=== PATIENT | male | born 1980 | race Caucasian/White ===

== ENCOUNTER → 2023-04-04 11:58 | Outpatient (CLI) | payer BC, OTHER, SELFPAY ==
[2023-04-04 12:45] LABS: Add Manual Diff / Slide Review NO; Basophils Absolute Auto 0 /uL (0-100); Basophils Percent Auto 1.1 % (0-2); Eosinophils Absolute Auto 200 /uL (0-450); Eosinophils Percent Auto 3.7 % (2-4); Hematocrit 41.9 % (41-53); Hemoglobin 14.3 g/dL (13.5-17.5); Lymphocytes Absolute Auto 1800 /uL (1100-4500); Lymphocytes Percent Auto 38.4 % (25-40); Mean Corpuscular Hemoglobin 29.3 PG (26-34); Monocytes Absolute Auto 400 /uL (0-900); Monocytes Percent Auto 8.1 % (3-14); Neutrophils Absolute Auto 2300 /uL (1500-7000); Neutrophils Percent Auto 48.7 % (50-75); Platelet Count 242 X10^3/uL (150-400); Red Blood Cell Count 4.87 X10^6/uL (4.5-5.9); Red Cell Distribution Width 12.5 % (11.6-14.8); White Blood Cell Count 4.6 X10^3/uL (4.5-11.0)
[2023-04-04 14:49] LABS: Alanine Aminotransferase 28 IU/L (<50); Albumin 4.2 g/dL (3.5-5.0); Albumin Globulin Ratio 1.4 (1.0-2.8); Alkaline Phosphatase 56 U/L (38-126); Aspartate Aminotransferase 40 IU/L (17-59); BUN Creatinine Ratio 14.9 (6-22); Bilirubin Total 0.5 mg/dL (0.2-1.3); Blood Urea Nitrogen 18 mg/dL (9-20); Calcium 9.5 mg/dL (8.4-10.2); Carbon Dioxide 30 mmol/L (22-32); Chloride 100 mmol/L (98-107); Cholesterol 219 mg/dL (140-199); Estimated Glomerular Filt Rate > 60 mL/min (>60); Glucose 89 mg/dL (70-100); HDL Cholesterol 63 mg/dL (40-60); HEMOLYSIS < 15 (0-50); LDL Cholesterol Calculated 139 mg/dL (<100); Potassium 4.2 mmol/L (3.4-5.1); Sodium 137 mmol/L (137-145); Total Protein 7.2 g/dL (6.3-8.2); Triglycerides 85 mg/dL (35-150)
== END ==
PROVIDERS: PCP Family Medicine; Referring Provider Family Medicine; Visit Provider Family Medicine
DX: Z00.00 Encounter for general adult medical examination without abnormal findings (principal)
CPT/HCPCS: 36415; 80053; 80061; 85025; 93005; 93010

== ENCOUNTER 2023-06-18 14:37 | Emergency (ER) | payer BC, OTHER, SELFPAY ==
[2023-06-18 14:40] VITALS: BP 126/72; PULSE 86; RESP 18; TEMP 36.6; O2SAT 99
[2023-06-18 14:58] VITALS: PULSE 68
--- NOTE | 2023-06-18 15:11 | DI.RAD.S_ITS ---
PROCEDURE: XR SHOULDER RT MIN 2V INDICATIONS: Fall TECHNIQUE: 3 views of the shoulder were acquired. COMPARISON: None. FINDINGS: Bones: There is a small bone fragment projecting superiorly from the tip of the acromion. Glenohumeral alignment is maintained. No displaced fracture otherwise. Mild degenerative changes. Soft tissues: No suspicious calcifications elsewhere. IMPRESSION: Slight superior positioning of the clavicle in relation to the acromion could represent AC joint injury. Mild degenerative changes. Age-indeterminate bone fragments also seen adjacent to the AC joint. If there is high concern for further derangement, consider MRI evaluation. Dictated by: Humberto Bey M.D. on 06/18/2023 at 15:36 Approved by: Humberto Bey M.D. on 06/18/2023 at 15:37
--- NOTE | 2023-06-18 15:13 | ED.UPPEXIN ---
HPI - Extremity Injury (Upper) <Donna Clark PA-C - Last Filed: 06/18/23 15:55> General Chief Complaint: Extremity Injury, Upper Stated Complaint: fell skiing Time Seen by Provider: 06/18/23 14:47 Source: patient Mode of arrival: Ambulatory History of Present Illness HPI narrative: 43-year-old male presents to the ED status post a mechanical fall sustained during snowboarding earlier today. Patient complains of pain in the right shoulder with limited range of motion of the right arm due to pain. Patient denies numbness, tingling, weakness. Endorses mild nausea, denies vomiting. No loss of consciousness. Possible head strike. Patient took 2 Advil prior to presenting to the ED. Related Data Previous Rx's Medication Instructions Recorded tamsulosin 0.4 mg capsule 0.4 mg PO BEDTIME #90 caps 04/04/23 zolpidem 5 mg tablet (Ambien) 5 mg PO BEDTIME PRN sleep #20 tabs 04/04/23 Allergies Allergy/AdvReac Type Severity Reaction Status Date / Time No Known Drug Allergies Allergy Verified 06/27/23 08:27 Review of Systems <Donna Clark PA-C - Last Filed: 06/18/23 15:55> Constitutional Constitutional: Denies chills, Denies fatigue, Denies fever(s), Denies frequent falls, Denies lethargy and Denies weakness Eyes Eyes: Denies change in vision, Denies eye discharge, Denies irritation and Denies loss of vision ENT Ears, Nose, Mouth, and Throat: Denies change in voice, Denies dizziness, Denies neck pain, Denies sore throat and Denies throat swelling Cardiovascular Cardiovascular: Denies chest pain, Denies irregular heart rhythm, Denies lightheadedness, Denies palpitations, Denies dyspnea, Denies dyspnea on exertion and Denies orthopnea Respiratory Respiratory: Denies cough, Denies dyspnea, Denies dyspnea on exertion and Denies wheezing Gastrointestinal Gastrointestinal: Denies abdominal pain, Denies change in bowel habits, Denies diarrhea, Denies nausea and Denies vomiting Musculoskeletal Musculoskeletal: Denies neck pain and Denies numbness Comments: Right shoulder pain Integumentary/Breasts Skin/Breast: Denies pruritus, Denies erythema, Denies rash and Denies wounds Neurologic Neurologic: Denies behavioral changes, Denies confusion, Denies dizziness, Denies frequent falls, Denies loss of vision, Denies numbness and Denies weakness Psychiatric Psychiatric: Denies anxiety, Denies behavioral changes, Denies confusion, Denies depression, Denies homicidal ideation and Denies suicidal ideation Endocrine Endocrine: Denies fatigue, Denies flushing and Denies palpitations Hematologic/Lymphatic Hematologic/Lymphatic: Denies easy bruising Allergic/Immunologic Allergic/Immunologic: Denies urticaria, Denies throat swelling and Denies wheezing Patient History <Donna Clark PA-C - Last Filed: 06/18/23 15:55> Medical History Ingrown toenail of both feet Eczema BPH (benign prostatic hyperplasia) Family history of colon cancer 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 Encounter for wellness examination in adult Social History Smoking Status: Never smoker Smoking Status: Never smoker Substance Use Type: does not use Exam <Donna Clark PA-C - Last Filed: 06/18/23 15:55> Narrative Exam Narrative: Const General:?cooperative, healthy appearing and comfortable [facility] Head:?normal to inspection Ears:?hearing grossly normal bilaterally Nose:?external nose normal Face and sinus:?normal facial exam and sinuses nontender Mouth:?oral mucosae normal Throat:?posterior oropharynx normal Eyes General:?appearance normal, both eyes and all related structures Neck Neck:?normal visual inspection and no lymphadenopathy noted Resp Effort & Inspection:?normal respiratory effort Auscultation:?clear to auscultation bilaterally Cardio Rate:?regular rate Rhythm:?regular rhythm Musculoskeletal No midline tenderness to palpation. No paraspinal tenderness to palpation. There is some tenderness to palpation of the right shoulder anteriorly. Range of motion of right arm is limited due to pain in the shoulder. Strength and sensation is intact. Patient is neurovascularly intact. Neuro General:?patient alert, patient awake and patient oriented x3 Initial Vital Signs Initial Vital Signs: Vital Signs Temperature 97.9 F 06/18/23 14:40 Pulse Rate 86 06/18/23 14:40 Respiratory Rate 18 06/18/23 14:40 Blood Pressure 126/72 06/18/23 14:40 Pulse Oximetry 99 06/18/23 14:40 Oxygen Delivery Method Room Air 06/18/23 14:40 <Umair Spangler MD - Last Filed: 06/28/23 10:12> Initial Vital Signs Initial Vital Signs: Vital Signs Temperature 97.9 F 06/18/23 14:40 Pulse Rate 86 06/18/23 14:40 Respiratory Rate 18 06/18/23 14:40 Blood Pressure 126/72 06/18/23 14:40 Pulse Oximetry 99 06/18/23 14:40 Oxygen Delivery Method Room Air 06/18/23 14:40 Course <Donna Clark PA-C - Last Filed: 06/18/23 15:55> Orders Ordered: Discontinued Medications Oxycodone/Acetaminophen (Oxycodone/Acetaminophen 5/325 Tablet) 1 tab PO NOW ONE Stop: 06/18/23 15:11 Last Admin: 06/18/23 15:15 Dose: 1 tab Documented By: ES Vital Signs Vital signs: Vital Signs - 8 hr 06/18/23 14:40 06/18/23 14:58 06/18/23 15:52 Temperature 97.9 F Pulse Rate 86 65 Pulse Rate [Right Radial] 68 Respiratory Rate 18 16 Blood Pressure 126/72 128/78 Pulse Oximetry 99 97 Oxygen Delivery Method Room Air Room Air <Umair Spangler MD - Last Filed: 06/28/23 10:12> Orders Ordered: Discontinued Medications Oxycodone/Acetaminophen (Oxycodone/Acetaminophen 5/325 Tablet) 1 tab PO NOW ONE Stop: 06/18/23 15:11 Last Admin: 06/18/23 15:15 Dose: 1 tab Documented By: ES Vital Signs Vital signs: Vital Signs - 8 hr 06/18/23 14:40 06/18/23 14:58 06/18/23 15:52 Temperature 97.9 F Pulse Rate 86 65 Pulse Rate [Right Radial] 68 Respiratory Rate 18 16 Blood Pressure 126/72 128/78 Pulse Oximetry 99 97 Oxygen Delivery Method Room Air Room Air MDM - Extremity Injury (Upper) <Donna Clark PA-C - Last Filed: 06/18/23 15:55> MDM Narrative Medical decision making narrative: 43-year-old male presents to the ED status post a mechanical fall sustained during snowboarding earlier today. Concern for fracture/dislocation versus musculoskeletal sprain/strain versus other. Will obtain shoulder x-ray, give Percocet for pain, reassess. X-ray shows slight superior positioning of the clavicle in relation to the acromion, could represent AC joint injury. Age indeterminate bone fragments also seen adjacent to the AC joint. No dislocation. Patient was fitted in a sling. Discussed findings with patient. Recommend follow-up with ortho as soon as possible. Recommend Tylenol, ibuprofen for pain. ED return precautions discussed with patient. Patient verbalized understanding. Medical records reviewed: Yes Discharge Plan Departure Patient Disposition: Home Clinical Impression: Right shoulder pain Qualifiers: Chronicity: acute Qualified Code(s): M25.511 - Pain in right shoulder Instructions: DI for Shoulder Sprain Activity Restrictions/Additional Instructions: You were evaluated in the ED today for a right shoulder injury. Your x-ray does not show a shoulder dislocation. There is a small fragment of bone of indeterminate age near the AC joint. There is some concern for an AC joint injury. Please follow-up with an manpower development specialist as soon as possible for further evaluation. You may keep your arm in the sling for comfort, slowly ranging your arm over the next few days. You may take Tylenol, ibuprofen for pain. Return to the ED if you have worsening symptoms, numbness, tingling, weakness. Prescriptions: No Action zolpidem [Ambien] 5 mg tablet 5 mg PO BEDTIME PRN (Reason: sleep) Qty: 20 0RF tamsulosin 0.4 mg capsule 0.4 mg PO BEDTIME Qty: 90 1RF Referrals: Daniel Garcia, DO [Primary Care Provider] - Stand Alone Forms: Patient Portal/API ED Sign-out <Umair Spangler MD - Last Filed: 06/28/23 10:12> Cosign ED Attending Karoline Attestation: I was immediately available in the department for consultation. This documentation has been reviewed and I agree with assessment and plan. Supervised by Umair Spangler MD
[2023-06-18] MEDS: OXYCODONE/ACETAMINOPHEN 5/325 TABLET 1 TAB PO (15:15)
[2023-06-18 15:52] VITALS: BP 128/78; PULSE 65; RESP 16; O2SAT 97
== END 2023-06-18 15:52 | disposition home or self-care (01) ==
PROVIDERS: Emergency Provider Student in an Organized Health Care Education/Training Program; PCP Family Medicine
DX: M25.511 Pain in right shoulder (principal); V00.311A Fall from snowboard, initial encounter
CPT/HCPCS: 73030; 99283; 99284

== ENCOUNTER 2023-10-12 10:04 | Day surgery (SDC) | payer BC, OTHER, SELFPAY ==
--- NOTE | 2023-10-12 | PATH_ITS ---
[facility] Accession Number: [id number] No. of containers..01 Tissue . 01 Material submitted: . rectum - RECTAL LESION . 01 Diagnosis: RECTAL LESION: Benign fibroepithelial polyp. No dysplasia or condyloma identified. [facility] 10/18/2023 1504 Local . 01 Electronically signed: . Kwan Mcmahon MD, Pathologist NPI- [id number] . 01 Gross description: . RECTAL LESION: Received in formalin is 1 fragment(s) of bah, soft tissue measuring 0.5 x 0.5 x 0.4 cm submitted entirely in 1 cassette(s) /JOEY 10/18/2023 1504 Local . 01 Pathologist provided ICD-10: D12.9 . 01 CPT . 160214 Specimen Comment: A courtesy copy of this report has been sent to [phone] Performed at: 01 [facility] [address] [place] [address], [place], [place] [id number] MD Kwan Mcmahon MD Phone: [phone]
[2023-10-12 10:20] VITALS: BP 120/78; PULSE 74; RESP 17; TEMP 36.4; O2SAT 100
[2023-10-12] MEDS: LACTATED RINGERS 1,000 ML 42 ML IV (10:27)
--- NOTE | 2023-10-12 10:30 | P.HP_ITS ---
History of Present Illness History of Present Illness Date Patient Seen: 10/12/23 Time Patient Seen: 10:30 Chief complaint: Dx Colonoscopy w/pos bx Narrative: Wan is a 43-year-old man who is here for a colonoscopy. A grandfather from colon cancer. No first-degree relatives with colon cancer. 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 Encounter for wellness examination in adult Social History Smoking Status: Never smoker alcohol intake: current Meds Home Medications and Allergies Home Medications Medication Instructions Recorded Confirmed Type zolpidem 5 mg tablet (Ambien) 5 mg PO BEDTIME PRN sleep #20 tabs 04/04/23 10/12/23 Rx peg 3350-sod sulf,[id number] 1,000 ml PO DIRECTED #2,000 mL 08/31/23 Rx 178.7-7.3-0.5-1.12-0.9 gram oral soln (Suflave) tamsulosin 0.4 mg capsule 0.4 mg PO BEDTIME #90 caps 09/14/23 10/12/23 Rx doxylamine succinate 25 mg tablet 12.5 mg PO BEDTIME 10/12/23 10/12/23 History Allergies Allergy/AdvReac Type Severity Reaction Status Date / Time No Known Drug Allergies Allergy Verified 10/12/23 10:17 Exam Vital Signs (past 8 hours): - 10/12/23 10:20 Temperature 97.5 F L Pulse Rate 74 Respiratory Rate 17 Blood Pressure 120/78 Pulse Oximetry 100 Oxygen Delivery Method Room Air Oxygen Flow Rate 0 Oxygen Delivery Method Room Air Oxygen Flow Rate 0 Const General: healthy appearing Assessment & Plan Assessment and plan (1) Family history of colon cancer: Status: Acute Plan We reviewed the risks and benefits of colonoscopy for colon cancer screening and he would like to proceed.
--- NOTE | 2023-10-12 11:31 | PM.OP.COLON ---
Operative Date/Time/Diagnoses Date of procedure: 10/12/23 Time of procedure: 11:31 Pre-op diagnosis: Family history of colon cancer Post-op diagnosis: same Procedure & Clinicians Study performed: Colonoscopy Same procedure as scheduled: Yes Surgeon: Alberto Zamora Procedure Notes Procedure in detail: Surgeon: Alberto Zamora MD Anesthesia: Josue Chavira D.O. Procedure: The patient was brought to the endoscopy suite, placed in left lateral decubitus position. The patient was connected to monitoring devices. A time-out was performed. Sedation was administered. Once the patient was adequately sedated, a digital rectal exam was performed and was normal. The scope was then inserted and advanced to the cecum where the appendiceal orifice was identified and photographed. The scope was then slowly withdrawn over greater than 6 minutes. The mucosa was thoroughly inspected. No abnormalities were noted until we got to the rectum. There was a whitish polypoid lesion in the distal rectum just above the dentate line. It was best seen on retroflexed view. It was biopsied with cold snare and noted to be rather firm and tough. There was minimal bleeding. The scope was straightened and removed. The digital rectal exam was repeated and it felt as if the lesion had been coming from the anterior midline. The patient was awakened and brought to recovery. Scope withdrawal time: 10 minutes Sedation time: 14 minutes EBL: 3 mL Findings: Polypoid lesion in the distal rectum from just above the dentate line Post-procedure Disposition: PACU
[2023-10-12 11:35] VITALS: BP 103/63; PULSE 72; RESP 16; TEMP 36.2; O2SAT 99
[2023-10-12 11:41] VITALS: BP 103/78; PULSE 74; RESP 16; TEMP 36.2; O2SAT 98
[2023-10-12 11:54] VITALS: BP 105/77; PULSE 65; RESP 16; TEMP 37; O2SAT 100
== END 2023-10-12 11:59 | disposition home or self-care (01) ==
PROVIDERS: PCP Family Medicine; Referring Provider Surgery; Visit Provider Surgery
PROC: 0DJD8ZZ Inspection of Lower Intestinal Tract, Via Natural or Artificial Opening Endoscopic (ICD-10-PCS; CPT 45378; principal; 2023-10-12 10:45)
DX: Z12.11 Encounter for screening for malignant neoplasm of colon (principal); K62.1 Rectal polyp
CPT/HCPCS: 45385; J2704

== ENCOUNTER → 2024-04-30 10:13 | Outpatient (CLI) | payer BC, OTHER, SELFPAY ==
[2024-04-30 11:05] LABS: Add Manual Diff / Slide Review NO; Basophils Absolute Auto 100 /uL (0-100); Basophils Percent Auto 1.1 % (0-2); Eosinophils Absolute Auto 400 /uL (0-450); Eosinophils Percent Auto 7.2 % (2-4); Hematocrit 42.5 % (41-53); Hemoglobin 14.3 g/dL (13.5-17.5); Lymphocytes Absolute Auto 1900 /uL (1100-4500); Lymphocytes Percent Auto 33.9 % (25-40); Mean Corpuscular HGB Conc 33.5 % (30-36); Mean Corpuscular Hemoglobin 29.2 PG (26-34); Mean Corpuscular Volume 87.2 fL (80-100); Monocytes Absolute Auto 600 /uL (0-900); Monocytes Percent Auto 10.5 % (3-14); Neutrophils Absolute Auto 2700 /uL (1500-7000); Neutrophils Percent Auto 47.3 % (50-75); Platelet Count 245 X10^3/uL (150-400); Red Blood Cell Count 4.88 X10^6/uL (4.5-5.9); Red Cell Distribution Width 13.1 % (11.6-14.8); White Blood Cell Count 5.6 X10^3/uL (4.5-11.0)
[2024-04-30 11:31] LABS: Alanine Aminotransferase 43 IU/L (<50); Albumin 4.4 g/dL (3.5-5.0); Albumin Globulin Ratio 1.5 (1.0-2.8); Alkaline Phosphatase 70 U/L (38-126); Aspartate Aminotransferase 54 IU/L (17-59); BUN Creatinine Ratio 15.3 (6-22); Bilirubin Total 0.6 mg/dL (0.2-1.3); Blood Urea Nitrogen 18 mg/dL (9-20); Calcium 9.9 mg/dL (8.4-10.2); Carbon Dioxide 30 mmol/L (22-32); Chloride 102 mmol/L (98-107); Cholesterol 252 mg/dL (140-199); Estimated Glomerular Filt Rate > 60 mL/min (>60); Globulin 2.9 g/dL (1.7-4.1); Glucose 96 mg/dL (70-100); HDL Cholesterol 107 mg/dL (40-60); HEMOLYSIS < 15 (0-50); LDL Cholesterol Calculated 124 mg/dL (<100); Potassium 4.5 mmol/L (3.4-5.1); Sodium 137 mmol/L (137-145); Total Protein 7.3 g/dL (6.3-8.2); Triglycerides 107 mg/dL (35-150)
== END ==
PROVIDERS: PCP Family Medicine; Referring Provider Family Medicine; Visit Provider Family Medicine
DX: Z00.00 Encounter for general adult medical examination without abnormal findings (principal); Z80.0 Family history of malignant neoplasm of digestive organs; N40.1 Benign prostatic hyperplasia with lower urinary tract symptoms; R35.1 Nocturia; M75.80 Other shoulder lesions, unspecified shoulder
CPT/HCPCS: 36415; 80053; 80061; 85025

== ENCOUNTER → 2025-03-07 10:20 | Outpatient (CLI) | payer BC, OTHER, SELFPAY ==
[2025-03-07 10:55] LABS: Add Manual Diff / Slide Review NO; Hematocrit 42.7 % (41-53); Hemoglobin 14.4 g/dL (13.5-17.5); Lymphocytes Absolute Auto 2000 /uL (1100-4500); Mean Corpuscular HGB Conc 33.6 % (30-36); Mean Corpuscular Hemoglobin 29.1 PG (26-34); Mean Corpuscular Volume 86.4 fL (80-100); Platelet Count 238 X10^3/uL (150-400)
[2025-03-07 11:35] LABS: Hemoglobin A1C% w Est Avg Glu 5.6 % (4.0-6.0)
[2025-03-07 11:37] LABS: Alanine Aminotransferase 27 IU/L (<50); Albumin 4.4 g/dL (3.5-5.0); Albumin Globulin Ratio 1.4 (1.0-2.8); Alkaline Phosphatase 70 U/L (38-126); Blood Urea Nitrogen 16 mg/dL (9-20); Calcium 9.5 mg/dL (8.4-10.2); Carbon Dioxide 30 mmol/L (22-32); Chloride 103 mmol/L (98-107); Cholesterol 211 mg/dL (140-199); Estimated Glomerular Filt Rate > 60 mL/min (>60); Globulin 3.1 g/dL (1.7-4.1); Glucose 97 mg/dL (70-99); HDL Cholesterol 79 mg/dL (40-60); HEMOLYSIS < 15 (0-50); Potassium 4.5 mmol/L (3.4-5.1); Sodium 138 mmol/L (137-145); Total Protein 7.5 g/dL (6.3-8.2); Triglycerides 83 mg/dL (35-150)
== END ==
LOC: LAB 10:28
PROVIDERS: PCP Family Medicine; Referring Provider Family Medicine; Visit Provider Family Medicine
DX: E78.5 Hyperlipidemia, unspecified (principal); N40.1 Benign prostatic hyperplasia with lower urinary tract symptoms; R35.1 Nocturia
CPT/HCPCS: 36415; 80053; 80061; 83036; 85025